=== PATIENT | male | born 1930 | race Caucasian/White ===

== ENCOUNTER 2016-04-02 13:58 | Emergency (ER) | payer MEDICARE, OTHER ==
[~2016-04-02] VITALS: Ht 170.2 cm; Wt 71.2 kg
[~2016-04-02 13:58] MED LIST: ASPI-378 PO; CARV3.1240 PO; CLOP75TA41 PO; FURO40TA4 PO; GLIP-115 PO; LIS10T GT; LUTE20CA10 PO; SIMV-8 PO
[2016-04-02 16:39] VITALS: BP 188/65
== END 2016-04-02 16:58 | disposition home or self-care (01) ==
LOC: ER 14:08
DX: S62.615A Displaced fracture of proximal phalanx of left ring finger, initial encounter for closed fracture (principal); M25.562 Pain in left knee; Z79.899 Other long term (current) drug therapy; Z79.82 Long term (current) use of aspirin; I50.9 Heart failure, unspecified; Z86.73 Personal history of transient ischemic attack (TIA), and cerebral infarction without residual deficits; W01.0XXA Fall on same level from slipping, tripping and stumbling without subsequent striking against object, initial encounter; Y93.01 Activity, walking, marching and hiking; Y99.9 Unspecified external cause status; Y92.9 Unspecified place or not applicable
CPT/HCPCS: 29130; 73110; 73562

== ENCOUNTER 2017-03-24 10:41 | Emergency (ER) | payer MEDICARE, BC ==
[~2017-03-24] VITALS: Ht 175.3 cm; Wt 65.8 kg
[2017-03-24 10:58] VITALS: BP 119/71
== END 2017-03-24 14:23 | disposition left against medical advice (07) ==
LOC: ER 10:41
DX: H57.11 Ocular pain, right eye (principal); Z53.21 Procedure and treatment not carried out due to patient leaving prior to being seen by health care provider